=== PATIENT | female | born 1980 | race American Indian/Alaskan Native ===

== ENCOUNTER 2017-08-18 13:44 | Emergency (ER) | payer MEDICAID ==
[2017-08-18 16:14] LABS: HCG Qualitative,Urine Negative (Negative)
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
[2017-08-19 02:03] VITALS: BP 133/89
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
== END 2017-08-19 06:52 | disposition home or self-care (01) ==
LOC: ED 13:44
DX: F07.81 Postconcussional syndrome (principal)
CPT/HCPCS: 70450; 70486; 72125; 81025